=== PATIENT | male | born 1970 | race Caucasian/White ===

== ENCOUNTER → 2018-08-05 | Outpatient (CLI) | payer OTHER ==
--- NOTE | 2018-08-05 16:35 | Diagnostic Imaging Report ---
EXAMINATION: CHEST 2 VIEWS INDICATION: Renal cyst. COMPARISON: Report from CT chest dated 03/27/2014, although the images were not available for review at the time of this dictation. FINDINGS: TUBES and LINES: None. LUNGS: Lungs are well inflated. There is no evidence of pneumonia or pulmonary edema. PLEURA: No pleural effusion or pneumothorax. HEART AND MEDIASTINUM: The cardiomediastinal silhouette is unremarkable. BONES AND SOFT TISSUES: No acute osseous abnormality. UPPER ABDOMEN: No free air under the diaphragm. IMPRESSION: No acute radiographic abnormality. Signed by: Dr. Allan Garzon MD on 08/05/2018 4:32 PM
--- NOTE | 2018-08-05 16:47 | Diagnostic Imaging Report ---
EXAM: Renal Ultrasound INDICATION: Renal cyst COMPARISON: Prior studies including CT abdomen pelvis from 03/18/2014 and MRI abdomen from 02/16/2013 were not available for review at the time of this dictation. TECHNIQUE: Transverse and longitudinal images of the kidneys and bladder were obtained. FINDINGS: Right Kidney: Length: 12.6 x 5.6 x 5.6 cm, the renal cortex measures 1.8 cm Appearance: Normal echogenicity. Collecting system: No hydronephrosis Stones: None Cyst/Mass: None Left Kidney: Length: 11.8 x 5.7 cm, the renal cortex measures 2.8 cm Appearance: Normal echogenicity. Collecting system: No hydronephrosis Stones: None Cyst/Mass: There is a simple appearing 1.8 x 1.3 x 1.5 cm cyst in the inferior pole. There is an additional left mid pole minimally complex 2.0 x 1.7 x 1.9 cm probably anechoic cyst with calcification. Bladder: Unremarkable in appearance. Bilateral ureteral jets are seen. The prevoid volume is 39 cc. No post void volume. Prostate: The prostate volume is 13.4 cc IMPRESSION: Minimally complex left mid pole renal cyst measuring up to 2.0 cm. Suggest follow-up ultrasound in 6 months. Additional simple left inferior pole cyst. Signed by: Dr. Allan Garzon MD on 08/05/2018 4:44 PM
== END ==
LOC: US 15:35
PROVIDERS: ATTEND Urology
DX: C62.10 Malignant neoplasm of unspecified descended testis (principal); D41.00 Neoplasm of uncertain behavior of unspecified kidney; N28.1 Cyst of kidney, acquired
CPT/HCPCS: 71046; 76770